=== PATIENT | female | born 1965 | race Caucasian/White ===

== ENCOUNTER 2020-01-24 07:12 | Outpatient (CLI) | payer OTHER ==
[2020-01-24] VITALS (14 sets, daily range): BP systolic 133–166; BP diastolic 63–115
[~2020-01-24] VITALS: Ht 162.6 cm; Wt 97.5 kg
[~2020-01-24 07:12] MED LIST: AMITRIPTYLINE H10 M3 PO; COLACE100 MG PO; COZAAR 50 MG TA50 M2 PO; HYDROCHLOROTHIA25 M2 PO; IBUPROFEN 800800 M1 PO; LEVOTHYROXINE 0.1 MG PO; MOBIC15 MG PO; PERCOCET 5-3251 EACH PO; STOOL SOFTENER100 MG PO; TIZANIDINE HCL 22 M1 PO; TRAMADOL 50 MG50 MG PO; XARELTO10 MG PO; ZANAFLEX2 MG PO; ZANAFLEX4 MG PO; ZOLOFT100 MG PO; ZOLOFT50 MG PO
[2020-01-24 07:58] LABS: HEMATOCRIT 38.8 % (37.0-47.0); HEMOGLOBIN 13.1 gm/dL (12.0-15.0); MCH 31.6 pg (26.0-34.0); MCHC 33.8 g/dL (28.0-37.0); MCV 93.4 fL (80.0-100.0); RBC 4.15 mil/uL (4.20-5.00); RDW 12.9 % (10.5-14.5); WBC 6.7 thou/uL (4.0-11.0)
[2020-01-24 08:10] LABS: CALCIUM 8.9 mg/dL (8.5-10.1); CREATININE 0.9 mg/dL (0.6-1.0); POTASSIUM 3.6 mmol/L (3.5-5.1)
--- NOTE | 2020-01-24 08:23 | EKG ---
[facility] [place] [address] ELECTROCARDIOGRAM REPORT Name: JB BEAVER Room #: REG [facility]#: [id number] Admission: 01/24/20 Attend Phys: Elroy Ballesteros MD, Discharge: Date of : 61 Report #: [id number] THIS REPORT FOR: cc: Kartik Kohler,Iggy Blanco MD [facility] THIS REPORT FOR: //name// [facility] Test Date: 2020-01-24 Test Time: 07:55:27 Pat Name: JB BEAVER Department: Room: Gender: F Bolt Threader: DAREK : 1965 Requested By: Elroy Ballesteros Order Number: [id number] MD: Iggy Wilkes Measurements Intervals [place] Rate: 59 P: 38 IN: 187 QRS: 25 QRSD: 105 T: 36 QT: 444 QTc: 440 Interpretive Statements Sinus bradycardia Normal tracing Compared to ECG 04/25/2014 08:34:29 No significant changes Electronically Signed On 01-24-2020 8:23:38 CDT by Iggy Wilkes [email or web address] <ELECTRONICALLY SIGNED> By: Iggy Wilkes MD, [facility] 01/24/20 0823 0755 0755 Iggy Wilkes MD, [facility] /EPI
[2020-01-24] MEDS ORDERED: ESTRACE42.5 GM VAG (08:37)
[2020-01-24] MEDS ORDERED: MELOXICAM15 MG PO (08:38)
[2020-01-24] MEDS ORDERED: TAPAZOLE10 MG PO (08:39)
[2020-01-24] MEDS ORDERED: METOPROLOL SUCC50 MG PO (08:40)
[2020-01-24] MEDS ORDERED: ROSUVASTATIN CA10 MG PO (08:41)
[2020-01-24] MEDS ORDERED: OCUVITE ADULT1 EAC1 PO (08:41)
--- NOTE | 2020-01-24 10:29 | NUR ---
pt anxious, getting frustrated that her heart cath is running late. Attempted to reassure pt, explained that there are emergencies this morning.
--- NOTE | 2020-01-24 19:24 | NUR ---
PT ADMITED FROM [employer]PERVIS[employer]. ADMISSION HX AND ASSESSMENT COMPLETED. VSS. RIGHT GROIN INCISION C/D/I. NO HEMATOMA NOTED. PT DENIED HAVING PAIN. SR/ SB ON TELE. WILL CONTINUE TO MONITOR.
[2020-01-25 01:00] VITALS: BP 148/63
[2020-01-25 04:22] LABS: HEMATOCRIT 37.1 % (37.0-47.0); HEMOGLOBIN 12.4 gm/dL (12.0-15.0); MCH 31.1 pg (26.0-34.0); MCHC 33.3 g/dL (28.0-37.0); MCV 93.5 fL (80.0-100.0); RBC 3.97 mil/uL (4.20-5.00); RDW 12.8 % (10.5-14.5); WBC 7.9 thou/uL (4.0-11.0)
--- NOTE | 2020-01-25 04:36 | NUR ---
ASSESSMENT DOCUMENTED.PT BEEN RESTING IN NO ACUTE DISTRESS.A/OX4.VSS.S/P CARDIAC JESSE W/INTERVENTIONS.RIGHT GROIN MYNX,W/O HEMATOMA OR BRUISING.DRESSING CDI.PERIPHERAL PULSES 2+ THROUGHOUT.UP AD ERIC IN THE ROOM.POC IS TO GO HOME TODAY.WILL CONT TO MONITOR PER POC.
[2020-01-25 04:43] LABS: ALBUMIN 3.5 g/dL (3.4-5.0); CALCIUM 8.6 mg/dL (8.5-10.1); CREATININE 0.8 mg/dL (0.6-1.0); POTASSIUM 3.8 mmol/L (3.5-5.1); TOTAL BILIRUBIN 0.3 mg/dL (0.2-1.0); TOTAL PROTEIN 6.9 g/dL (6.4-8.2)
[2020-01-25 04:53] LABS: TROPONIN-I 0.69 ng/mL (<0.06)
[2020-01-25 05:07] VITALS: BP 144/63
[2020-01-25 05:15] VITALS: BP 145/68
--- NOTE | 2020-01-25 07:51 | EKG ---
[facility] [place] [address] ELECTROCARDIOGRAM REPORT Name: JB BEAVER Room #: 209-[facility]..#: [id number] Admission: 01/24/20 Attend Phys: Elroy Ballesteros MD, Discharge: Date of : 61 Report #: [id number] THIS REPORT FOR: cc: Kartik Kohler,Kartik Christian,Iggy Coronel MD [facility] THIS REPORT FOR: //name// [facility] Test Date: 2020-01-25 Test Time: 07:09:18 Pat Name: JB BEAVER Department: Room: 209 P Gender: F Real Estate Underwriter: DAREK : 1965 Requested By: Elroy Ballesteros Order Number: [id number] MD: Iggy Wilkes Measurements Intervals [place] Rate: 55 P: 37 [place]: 183 QRS: 44 QRSD: 107 T: 38 QT: 465 QTc: 445 Interpretive Statements Sinus bradycardia Atrial premature complex Compared to ECG 01/24/2020 07:55:27 Atrial premature complex(es) now present Electronically Signed On 01-25-2020 7:51:34 CDT by Iggy Wilkes [email or web address] <ELECTRONICALLY SIGNED> By: Iggy Wilkes MD, [facility] 01/25/20 0751 8 8 Iggy Wilkes MD, [facility] /EPI
[2020-01-25 09:03] VITALS: BP 139/62
[2020-01-25] MEDS ORDERED: EFFIENT10 MG PO (09:05)
[2020-01-25] MEDS ORDERED: XARELTO10 MG PO (09:05)
[2020-01-25 10:41] VITALS: BP 139/62
--- NOTE | 2020-01-25 11:32 | NUR ---
ASSUMED CARE AT SHIFT CHANGE, ALERT AND ORIENTED X4, AND DENIES ANY CP. VSS AND AFEBRILE. DRESSING TO RT GRION SITE D/C/I. DISCHARGE AND MEDICATION INSTRUCTION GIVEN TO PATIENT AND SHE VERBALIZED UNDERSTANDING. DISCHARGED HOME.
--- NOTE | 2020-02-02 17:42 | CATHLAB ---
[facility] [place] [address] INVASIVE PROCEDURE REPORT Name: JB BEAVER Room #: [facility] SHONA Barbour#: [id number] Admission: 01/24/20 Attend Phys: Elroy Ballesteros MD, Discharge: 01/25/20 Date of : 61 Report #: [id number] THIS REPORT FOR: cc: Kartik Kohler Jeffrey W. DO Mancuso, Gerald M. MD [facility] ~ APPROVED REPORT Study performed: 01/24/2020 13:26:56 Patient Details Patient Status: Out-Patient Room #: The patient is a 54 year-old female Event Personnel Elroy Ballesteros Starting Sheet Tank Operator, Pinky Israel RN, Rosita Reynolds, Jade Byrd RTR Monitor, Gina New RTR, PRODUCTION TRAINER Monitor Procedures Performed Art Access - R femoral artery* Aortogram Abdominal Peripheral Angio 899055 [address] Place w/wo Plasty Single DIAG 333219 Right and Left Heart Cath w/or w/o Coronarie 8925908 [facility] Kofi Access - R femoral vein Hemostasis w/ Mynx Hemostasis with Manual pressure 17428 Mod Sed Same Phys/QHP Ea 208569 11031 Initial Mod Sed Same Phys/QHP Gr5y 714902 Indication Positive stress test Procedure Narrative The Right Groin^ was infiltrated with 1% Lidocaine subcutaneous anesthesia. A PINNACLE 6FR Sheath #[id number] sheath was inserted into the RFA. Coronary angiography was performed using coronary diagnostic catheters. The right coronary system was accessed and visualized with a JR4 catheter. The left coronary system was accessed and visualized with a JL4 catheter. The left ventricle was accessed and visualized with a pigtail catheter. Left ventriculogram was performed in 30 degree projection. An aortogram of the abdominal aorta was performed. Closure device was deployed with a 6 Fr MYNX CONTROL 6F/7F L#[id number]. Hemostasis was obtained with manual pressure following sheath removal without any complications. The patient tolerated the procedure well and there were no complications associated with the procedure. There was no hematoma. [address] [address] INVASIVE PROCEDURE REPORT Name: SARANYAJB L [facility] [id number] Admission: 01/24/20 Attend Phys: Elroy Ballesteros, Discharge: 01/25/20 Date of : 61 Report #: [id number] Intraoperative Conscious Sedation Sedation start time: 13:54 Case end Time: 15:03 Fentanyl 100 mcg Versed 2.0 mg Fluoro Time: 8.70 minutes Dose: DAP 22103.10 cGycm2 1826 mGy Contrast Type and Amount: Omnipaque 195 ml Hemodynamics The right atrial mean pressure is 13 mmHg. The right ventricular pressure is 37/8 mmHg. The pulmonary artery pressure is 36/16 mmHg with a mean of 24 mmHg. The mean pulmonary capillary wedge pressure is 21 mmHg. The left ventricular pressure is 144/13 mmHg with a mean of mmHg. The left ventricular end diastolic pressure is 25 mmHg. The cardiac output using thermo method is 5.65 L/min. The cardiac index using thermo method is 2.80 L/min/m2. PCI Technique Lesion Percutaneous coronary intervention was performed on the first diagnonal branch segment. A LAUNCHER 6FR EBU 3.5 #167388 Guide Catheter was used to engage the ostium. A Luge Wire .014 x 182CM #[id number] Interventional Guidewire was used to cross the lesion. BALLOON DILATION A Balloon catheter Sprinter OTW 2.25 x 12 #[id number] was inserted and inflated up to 8.00atm for 19seconds. Additional Inflation: 8.00atm for 17seconds. Additional Inflation: 10.00atm for 24seconds. STENT DEPLOYMENT A drug-eluting stent RESOLUTE TERE OTW 2.25 X 12 #[id number] was inserted and inflated up to 16.00atm for 27seconds. Conclusion 1. Successful right heart catheterization with cardiac output by thermodilution. See above hemodynamics. #2 normal left ventricular size and systolic function EF 50 to 55%. #3 abdominal aortogram revealing mild aortic ectasia but no aneurysm formation. Renal arteries bilateral appear to be patent #4 successful PTCA stent of a proximal large diagonal system which is subtotally occluded with slow flow to SALOME grade III flow with a 2.25 x 12 Tere stent postdilated 2.4 mm SALOME grade III flow #5 left main free of disease giving rise to LAD and circumflex. [facility] [place] [address] INVASIVE PROCEDURE REPORT Name: JB BEAVER [facility]: [facility] [id number] Admission: 01/24/20 Attend Phys: Elroy Ballesteros, Discharge: 01/25/20 Date of : 61 Report #: [id number] #6 the LAD with mild irregularities extends around the apex. Eccentric 40% proximal lesion. #7 circumflex OM with an eccentric proximal 70 to 75% lesion nondominant but moderate size vessel. #8 dominant right coronary with an eccentric 70% ostial lesion mid vessel 30 to 40%. Recommendations and plan: Continue aggressive risk factor modification. Dual antiplatelet therapy has been initiated for diagonal lesion. Will have strong consideration follow-up for intervention to proximal circumflex and ostial RCA. Follow-up will be arranged. Patient stable transfer to CCU. <ELECTRONICALLY SIGNED> By: Elroy Ballesteros MD, FACC 02/02/201741 41 41 Elroy Ballesteros MD, FACC /INF
--- NOTE | 2020-02-06 11:24 | H ---
[facility] [place] [address] HISTORY AND PHYSICAL Name: JB BEAVER Room #: DEP [facility]#: [id number] Admission: 01/24/20 Attend Phys: Elroy Ballesteros MD, Discharge: 01/25/20 Date of : 61 Report #: [id number] THIS REPORT FOR: cc: Kartik Kohler Jeffrey W. DO Mancuso, Gerald M. MD [facility] ~ CC: Elroy Kohler DATE OF SERVICE: 01/24/2020 HISTORY OF PRESENT ILLNESS: The patient is a 54-year-old female, patient of Dr. Kohler and Deondre Frias from [place]. I am asked to evaluate her for some progressive dyspnea, shortness of breath and some questionable anginal symptoms. Abnormal nuclear test suggesting anterior lateral wall ischemia. She has a very strong family history of premature coronary disease and secondhand smoke with the that smokes continuously in the house. She has not been a smoker. She has been maintained. She does note a marked decrease in her exercise tolerance and some occasional throat discomfort, but she was not aware that this could be angina. She is on rosuvastatin 10, a stool softener, tizanidine, metoprolol 50, methimazole, meloxicam. Recently started on Xarelto 20 mg a day because of some paroxysmal AFib. She has had no bleeding issues. PAST MEDICAL HISTORY: Positive for now the paroxysmal AFib, hypercholesterolemia, hysterectomy, cholecystectomy, bladder surgery, tubal ligation. SOCIAL HISTORY: She is . They [place]. She does work extensively at the home and longterm work. No tobacco, no significant alcohol use. FAMILY HISTORY: Extremely positive including brother, sister and father, all with premature coronary artery disease, in the 50s and 60s. REVIEW OF SYSTEMS: Negative except for stated above with the progressive dyspnea and fatigue. PHYSICAL EXAMINATION: GENERAL: She is pleasant, alert. VITAL SIGNS: Blood pressure 126/70, pulse 60. HEENT: Eyes reveal xanthelasmas. Pharynx is clear. NECK: Shows preserved upstrokes without JVD or bruits. LUNGS: Clear. CARDIOVASCULAR: Regular rate and rhythm, S1, S2, without murmur or gallop. ABDOMEN: Soft. No HSM or abdominal bruit. EXTREMITIES: Reveal trace of edema. Distal pulses diminished, but intact. [facility] [address] [place] [address] HISTORY AND PHYSICAL Name: JB BEAVER Room #: DEP [facility]#: [id number] Admission: 01/24/20 Attend Phys: Elroy Ballesteros MD, Discharge: 01/25/20 Date of : 61 Report #: [id number] NEUROLOGIC: Nonfocal. SKIN: Warm and dry without xanthoma or ulcer. MUSCULOSKELETAL: Generalized arthritic changes. ASSESSMENT: 1. Suspected coronary artery disease with stable angina and abnormal stress test. 2. Borderline hypertension. 3. Hypercholesterolemia. 4. Paroxysmal atrial fibrillation. 5. Degenerative joint disease. 6. Obstructive sleep apnea. RECOMMENDATIONS AND PLAN: We will check lipids with Dr. Kohler. Xarelto has been held for 72 hours. We will proceed with a catheterization to delineate the anatomy. Right and left heart catheterization and indication for intervention if so. There could be some underlying pulmonary issues here in addition. We will certainly notify you outcome of this procedure. Thank you for allowing us to share in her care. <ELECTRONICALLY SIGNED> By: Elroy Ballesteros MD, FACC 02/06/20 1124 1446 1516 Elroy Ballesteros MD, FACC /nt
== END 2020-01-25 12:17 | disposition home or self-care (01) ==
LOC: CATH 07:12 → 2N 15:47 → CATH 01-25 12:17
PROVIDERS: ATTEND Internal Medicine Cardiovascular Disease
DX: R94.39 Abnormal result of other cardiovascular function study (principal); I25.10 Atherosclerotic heart disease of native coronary artery without angina pectoris; R06.00 Dyspnea, unspecified; I77.811 Abdominal aortic ectasia; I10 Essential (primary) hypertension; E78.00 Pure hypercholesterolemia, unspecified; I48.0 Paroxysmal atrial fibrillation; M19.90 Unspecified osteoarthritis, unspecified site; E78.5 Hyperlipidemia, unspecified; F32.9 Major depressive disorder, single episode, unspecified; F41.9 Anxiety disorder, unspecified; E05.00 Thyrotoxicosis with diffuse goiter without thyrotoxic crisis or storm; Z98.890 Other specified postprocedural states; Z79.899 Other long term (current) drug therapy; Z82.49 Family history of ischemic heart disease and other diseases of the circulatory system; Z91.040 Latex allergy status
CPT/HCPCS: 10081

== ENCOUNTER → 2020-05-23 | Outpatient (CLI) | payer OTHER ==
[~2020-05-23] MED LIST changes: +EFFIENT10 MG PO; +ESTRACE42.5 GM VAG; +MELOXICAM15 MG PO; +METOPROLOL SUCC50 MG PO; +OCUVITE ADULT1 EAC1 PO; +ROSUVASTATIN CA10 MG PO; +TAPAZOLE10 MG PO
== END ==
LOC: SJCVCIMAG 09:51
PROVIDERS: ATTEND Internal Medicine Cardiovascular Disease
DX: I25.10 Atherosclerotic heart disease of native coronary artery without angina pectoris (principal); I48.91 Unspecified atrial fibrillation; Z98.61 Coronary angioplasty status

== ENCOUNTER 2020-05-29 07:07 | Observation (INO) | payer OTHER ==
[2020-05-29] VITALS (11 sets, daily range): BP systolic 124–147; BP diastolic 58–78
[~2020-05-29] VITALS: Ht 162.6 cm; Wt 93.4 kg
--- NOTE | 2020-05-29 07:50 | EKG ---
[facility] Danica Moore [facility] [address] ELECTROCARDIOGRAM REPORT Name: JB BEAVER Room #: REG [facility]#: [id number] Admission: 05/29/20 Attend Phys: Elroy Ballesteros MD, Discharge: Date of : 61 Report #: [id number] THIS REPORT FOR: cc: LEATHA WALLER Physician not on staff Iggy Wilkes MD [facility] ~ THIS REPORT FOR: //name// [facility] Test Date: 2020-05-29 Test Time: 07:46:58 Pat Name: JB BEAVER Department: Room: Gender: F Production Director: [facility] : 1965 Requested By: Elroy Ballesteros Order Number: [id number] MD: Iggy Wilkes Measurements Intervals [place] Rate: 64 P: 58 AL: 188 QRS: 19 QRSD: 97 T: 40 QT: 424 QTc: 438 Interpretive Statements Sinus rhythm No significant abnormality Compared to ECG 01/25/2020 07:09:18 Sinus bradycardia no longer present Atrial premature complex(es) no longer present Electronically Signed On 05-29-2020 7:50:43 SALT WASHER by Iggy Wilkes [email or web address] <ELECTRONICALLY SIGNED> By: Iggy Wilkes MD, [facility] 05/29/20 0750 Iggy Wilkes MD, [facility] /EPI
[2020-05-29 08:00] LABS: HEMATOCRIT 37.2 % (37.0-47.0); HEMOGLOBIN 12.4 gm/dL (12.0-15.0); MCH 30.7 pg (26.0-34.0); MCHC 33.4 g/dL (28.0-37.0); MCV 91.9 fL (80.0-100.0); RBC 4.04 mil/uL (4.20-5.00); WBC 7.4 thou/uL (4.0-11.0)
[2020-05-29] MEDS ORDERED: OCUVITE ADULT1 EAC1 PO (08:17)
[2020-05-29] MEDS ORDERED: ASA81BEC PO (08:23)
[2020-05-29 08:40] LABS: CALCIUM 9.4 mg/dL (8.5-10.1); CREATININE 0.9 mg/dL (0.6-1.0); POTASSIUM 3.5 mmol/L (3.5-5.1)
--- NOTE | 2020-05-29 14:11 | EKG ---
[facility] [place] [address] ELECTROCARDIOGRAM REPORT Name: JB BEAVER Room #: 218-P [facility] M.R.#: [id number] Admission: 05/29/20 Attend Phys: Elroy Ballesteros MD, Discharge: Date of : 61 Report #: [id number] THIS REPORT FOR: cc: LEATHA WALLER Physician not on staff Mario Jackson MD [facility] ~ THIS REPORT FOR: //name// [facility] Test Date: 2020-05-29 Test Time: 12:47:49 Pat Name: JB BEAVER Department: Room: 218 P Gender: F Rubber Belt Splicer: DAREK : 1965 Requested By: Magda Birch Order Number: [id number] MD: Mario Jackson Measurements Intervals [place] Rate: 57 P: 52 [place]: 195 QRS: 44 QRSD: 112 T: 30 QT: 455 QTc: 443 Interpretive Statements Sinus rhythm Borderline intraventricular conduction delay Compared to ECG 05/29/2020 07:46:58 No significant changes Electronically Signed On 05-29-2020 14:11:34 PHYSICAL BIOCHEMIST by Mario Jackson [email or web address] <ELECTRONICALLY SIGNED> By: Mario Jackson MD, FACC 05/29/20 1411 1247 1247 Mario Jackson MD, FAC /EPI
--- NOTE | 2020-05-29 17:37 | NUR ---
PT ADMITED FROM [employer]. ADMISSION HX AND ASSESSMENT COMPLETED. VSS. RIGHT GROIN INCISION C/D/I. NO HEMATOMA NOTED. POST OP CARDIAC CATH INSTRUCTIONS GIVEN TO PT. PT VERBERLISED UNDERSTANDING.
--- NOTE | 2020-05-29 18:01 | CATHLAB ---
[facility] [place] [address] INVASIVE PROCEDURE REPORT Name: JB BEAVER Room #: 218-P [facility] Mohit Barbour#: [id number] Admission: 05/29/20 Attend Phys: Elroy Ballesteros MD, Discharge: Date of : 61 Report #: [id number] THIS REPORT FOR: cc: LEATHA WALLER Physician not on staff Elroy Ballesteros MD [facility] ~ APPROVED REPORT Study performed: 05/29/2020 09:04:50 Patient Details Patient Status: Out-Patient Room #: The patient is a 54 year-old female Event Personnel Elroy Ballesteros General Production Manager, Caio Epperson RN RN, Jade Byrd RTR Monitor, María Elena Nicolas RTR Scrub Procedures Performed Art Access - R femoral artery* Left Heart Cath w/or w/o Coronaries 9114075 [facility] [address] w/wo Plasty Single CIRC 880971 [address] Place w/wo Plasty Single DIAG 176451 Hemostasis w/ Mynx 50127 Initial Mod Sed Same Phys/QHP Gr5y 681352 16067 Mod Sed Same Phys/QHP Ea 073699 Procedure Narrative The Right Groin^ was infiltrated with 1% Lidocaine subcutaneous anesthesia. A PINNACLE 6FR Sheath #879802 sheath was inserted into the RFA^. Coronary angiography was performed using coronary diagnostic catheters. The right coronary system was accessed and visualized with a JR4 catheter. The left coronary system was accessed and visualized with a JL4 catheter. The left ventricle was accessed and visualized with a PIGTAIL catheter. Left ventriculogram was performed in 30 degree projection. An aortogram of the abdominal aorta was performed. Closure device was deployed with a Fr MYNX CONTROL 6F/7F L#[id number]. The patient tolerated the procedure well and there were no complications associated with the procedure. There was no hematoma. Intraoperative Conscious Sedation Sedation start time: 9:35 Case end Time: 10:57 Fentanyl 75 mcg Versed 1.5 mg [facility] [address] [place] [address] INVASIVE PROCEDURE REPORT Name: SARANYAKEVINJB L Room #: 218-P [facility]#: [id number] Admission: 05/29/20 Attend Phys: Elroy Ballesteros, Discharge: Date of : 61 Report #: [id number] Fluoro Time: 11.60 minutes Dose: DAP 18578.20 cGycm2 3005 mGy Contrast Type and Amount: Omnipaque 240 ml Hemodynamics The aortic pressure is 166/65 mmHg with a mean of 86 mmHg. The left ventricular pressure is 168/10 mmHg with a mean of mmHg. The left ventricular end diastolic pressure is 27 mmHg. PCI Technique Lesion Percutaneous coronary intervention was performed on the proximal circumflex artery segment. A LAUNCHER 6FR EBU 3.5 #704692 Guide Catheter was used to engage the ostium. A Luge Wire .014 x 182CM #410858 Interventional Guidewire was used to cross the lesion. BALLOON DILATION A Balloon catheter Sprinter OTW 2.5 x 12 #[id number] was inserted and inflated up to 10.00atm for 29seconds. STENT DEPLOYMENT A stent RESOLUTE EDITH OTW 3.0 X 15 #[id number] was inserted and inflated up to 15.00atm for 36seconds. Additional Inflation: 16.00atm for 26seconds. PCI Technique Lesion 2 Percutaneous Coronary Intervention was performed on the first diagnonal branch segment. A LAUNCHER 6FR EBU 3.5 #610243 Guide Catheter was used to engage the ostium. A Luge Wire .014 x 182CM #398473 Interventional Guidewire was used to cross the lesion. Balloon Dilation A Balloon catheter Sprinter OTW 2.25 x 12 #[id number] was inserted and inflated up to 8.00atm for 28seconds. Additional Inflation: 10.00atm for 25seconds. Stent Deployment A stent RESOLUTE EDITH OTW 2.25 X 12 #[id number] was inserted and inflated up to 10.00atm for 24seconds. Additional Inflation: 16.00atm for 27seconds. Conclusion #1. Successful PTCA stent of the high-grade proximal circumflex lesion 80% to 0% placement of a 3.0 x 15 resolute edith SALOME grade III flow in a large but anatomically nondominant vessel. [facility] [address] [place] [address] INVASIVE PROCEDURE REPORT Name: SARANYAJB L Room #: 218-P [facility].#: [id number] Admission: 05/29/20 Attend Phys: Elroy Ballesteros, Discharge: Date of : 61 Report #: [id number] #2 successful PTCA stent of a proximal diagonal branch just distal to a previously placed stents high-grade disease placement of a 2.25 x 12 Edith resolute SALOME grade III flow #3 left main large free of disease giving rise to the LAD and circumflex #4 LAD with mild disease extends to the apex. #5 anatomically dominant right coronary artery with an eccentric 60% proximal lesion diffuse disease distally giving rise to the PDA mildly diseased. #6 normal left ventricular size and subtle anterior lateral wall leg EF 50 to 55% Recommendations and plan: Continue aggressive risk factor modification. Patient is anticoagulated for A. fib. Will utilize triple therapy with a baby aspirin for the first 30 days and then revert back to Effient and Xarelto. Patient is hemodynamically stable and pain-free transfer back to CCU to follow post coronary stent protocol. <ELECTRONICALLY SIGNED> By: Elroy Ballesteros MD, FACC 05/29/201800 00 00 Elroy Ballesteros MD, FACC /INF
[2020-05-30 00:18] VITALS: BP 117/53
[2020-05-30 05:05] LABS: HEMATOCRIT 36.7 % (37.0-47.0); HEMOGLOBIN 12.1 gm/dL (12.0-15.0); MCH 30.6 pg (26.0-34.0); MCHC 32.9 g/dL (28.0-37.0); RBC 3.95 mil/uL (4.20-5.00); RDW 13.3 % (10.5-14.5); WBC 8.9 thou/uL (4.0-11.0)
[2020-05-30 05:19] LABS: ALBUMIN 3.6 g/dL (3.4-5.0); CALCIUM 8.7 mg/dL (8.5-10.1); CREATININE 0.8 mg/dL (0.6-1.0); POTASSIUM 3.7 mmol/L (3.5-5.1); TOTAL BILIRUBIN 0.4 mg/dL (0.2-1.0); TOTAL PROTEIN 6.8 g/dL (6.4-8.2)
--- NOTE | 2020-05-30 05:45 | NUR ---
PT R GROIN CDI, NO C/O PAIN, VSS, PT UP ADLIB IN ROOM, HOPING TO GO HOME TODAY, WILL CON'T TO MONITOR PER PPOC.
[2020-05-30 06:13] VITALS: BP 133/67
[2020-05-30] MEDS ORDERED: XARELTO10 MG PO (07:22)
--- NOTE | 2020-05-30 07:26 | EKG ---
[facility] [place] [address] ELECTROCARDIOGRAM REPORT Name: JB BEAVER Room #: 218-P [facility] M.R.#: [id number] Admission: 05/29/20 Attend Phys: Elroy Ballesteros MD, Discharge: Date of : 61 Report #: [id number] THIS REPORT FOR: cc: LEATHA WALLER Physician not on staff Mario Jackson MD [facility] ~ THIS REPORT FOR: //name// [facility] Test Date: 2020-05-30 Test Time: 07:07:33 Pat Name: JB BEAVER Department: Room: 218 P Gender: F Build Master: DAREK : 1965 Requested By: Magda Birch Order Number: [id number] : Mario Jackson Measurements Intervals [place] Rate: 67 P: 37 [place]: 179 QRS: 22 QRSD: 99 T: 28 QT: 414 QTc: 437 Interpretive Statements Sinus rhythm Compared to ECG 05/29/2020 12:47:49 No significant changes Electronically Signed On 05-30-2020 7:26:02 FITNESS FLOOR ATTENDANT by Mario Jackson [email or web address] <ELECTRONICALLY SIGNED> By: Mario Jackson MD, FACC 05/30/20725 6 6 Mario Jackson MD, [facility] /EPI
[2020-05-30 08:00] VITALS: BP 139/67
[2020-05-30 09:24] VITALS: BP 139/67
--- NOTE | 2020-05-30 10:16 | NUR ---
ASSUMED CARE AT CHANGE OF SHIFT. ALERT X4, FROM HOME, HEART CATH WITH STENT 05/29/[address] CAICEDO. RIGHT GROIN SIGHT INTACT. CARDIAC BOX GLUER ROUNDED AND PROVIDED POST STENT EDUCATION. NSR ON TELE. DENIES PAIN, DENIES SOB, SCHEDULED MEDICATIONS GIVE PER ORDERS. DC HOME WITH SELF CARE.
[2020-05-30 10:21] VITALS: BP 139/67
[2020-05-30 11:12] VITALS: BP 126/79
== END 2020-05-30 14:17 | disposition home or self-care (01) ==
LOC: CATH 07:07 → 2N 12:07 → CATH 12:08 → 2N 12:08 → CATH 12:15 → 2N 05-30 14:17
PROVIDERS: Nurse Practitioner; ADMIT Internal Medicine Cardiovascular Disease; ATTEND Internal Medicine Cardiovascular Disease
DX: I25.10 Atherosclerotic heart disease of native coronary artery without angina pectoris (principal); I10 Essential (primary) hypertension; E78.5 Hyperlipidemia, unspecified; I48.0 Paroxysmal atrial fibrillation; E78.00 Pure hypercholesterolemia, unspecified

== ENCOUNTER → 2021-08-01 | Outpatient (CLI) | payer OTHER ==
[~2021-08-01] VITALS: Ht 162.6 cm; Wt 93.0 kg
[~2021-08-01] MED LIST changes: +ASA81BEC PO
[2021-08-01 07:32] VITALS: BP 142/68
[2021-08-01 07:33] LABS: HEMATOCRIT 42.3 % (37.0-47.0); HEMOGLOBIN 13.8 gm/dL (12.0-15.0); MCH 30.5 pg (26.0-34.0); MCHC 32.7 g/dL (28.0-37.0); MCV 93.2 fL (80.0-100.0); RBC 4.54 mil/uL (4.20-5.00); RDW 12.8 % (10.5-14.5); WBC 8.3 thou/uL (4.0-11.0)
[2021-08-01 07:56] LABS: CALCIUM 9.7 mg/dL (8.5-10.1); POTASSIUM 3.6 mmol/L (3.5-5.1)
--- NOTE | 2021-08-01 08:14 | EKG ---
[address] [address] ELECTROCARDIOGRAM REPORT Name: JB BEAVER Room #: [facility]#: [id number] Admission: 08/01/21 Attend Phys: Erloy Ballesteros MD, Discharge: Date of : 61 Report #: [id number] [facility] Test Date: 2021-08-01 Test Time: 07:57:41 Pat Name: JB BEAVER Department: Room: Gender: F Boilermaker Mechanic: [facility] : 1965 Requested By: Elroy Ballesteros Order Number: [id number] MD: Iggy Wilkes Measurements Intervals [place] Rate: 58 P: 26 [place]: 185 QRS: 16 QRSD: 101 T: 20 QT: 449 QTc: 442 Interpretive Statements Sinus bradycardia Otherwise normal tracing Compared to ECG 05/30/2020 07:07:33 No significant changes Electronically Signed On 08-01-2021 8:14:28 AUTOMOBILE CONTRACT CLERK by Iggy Wilkes [email or web address] <ELECTRONICALLY SIGNED> By: Iggy Wilkes MD, [facility] 08/01/21 0814 0757 0757 Iggy Wilkes MD, FACC /EPI
--- NOTE | 2021-08-01 10:16 | NUR ---
LATE ENTRY 10:00- PT BACK FROM PROCEDURE TO CV HOLDING RM 1. PT A/OX3 NO C/O. PTS DAUGHTER AT BEDSIDE WITH VERBAL INSTRUCTIONS TO BOTH PT AND PTS DAUGHTER OR R LEG MOVEMENT AND PRESSURE TO SITE FOR LAUGH, COUGH, OR SNEEZE. COFFEE PROVDIDED TO PT WITH PT HAVING NO OTHER REQUEST AT THIS TIME.
--- NOTE | 2021-08-03 16:47 | CATHLAB ---
[facility] [address] [place] [address] INVASIVE PROCEDURE REPORT Name: JB BEAVER Room #: REG SHONA HarryMariano#: [id number] Admission: 08/01/21 Attend Phys: Elroy Ballesteros MD, Discharge: Date of : 61 Report #: [id number] THIS REPORT FOR: cc: LEATHA WALLER Physician not on staff Elroy Ballesteros MD [facility] ~ APPROVED REPORT Study performed: 08/01/2021 08:30:50 Patient Details Patient Status: Out-Patient Room #: The patient is a 56 year-old female Event Personnel Elroy Ballesteros Letterpress Setter, Jade Cooley RTR Monitor, Laura Leon RTR Scrub, Gina New RTR, HAND UMBRELLA TIPPER Scrub, Jerman Tristan RN imaging system administrator Performed Art Access - R femoral artery* Kofi Access - R femoral vein Right and Left Heart Cath w/or w/o Coronarie [id number] [facility] Aortogram Abdominal Peripheral Angio 871541 Hemostasis w/ Mynx Hemostasis with Manual pressure 64203 Initial Mod Sed Same Phys/QHP Gr5y 277081 30774 Mod Sed Same Phys/QHP Ea 677156 Procedure Narrative The Right Groin^ was infiltrated with 1% Lidocaine subcutaneous anesthesia. A PINNACLE 6FR Sheath #[id number] sheath was inserted into the RFA. Coronary angiography was performed using coronary diagnostic catheters. The right coronary system was accessed and visualized with a 3DRC catheter. The left coronary system was accessed and visualized with a JL4 catheter. The left ventricle was accessed and visualized with a PIGTAIL catheter. Left ventriculogram was performed in 30 degree projection. An aortogram of the abdominal aorta was performed. Closure device was deployed with a Fr MYNX CONTROL 6F/7F L#[id number]. The patient tolerated the procedure well and there were no complications associated with the procedure. There was no hematoma. Intraoperative Conscious Sedation Sedation start time: 8:58 Case end Time: 9:46 Fentanyl 100.0 mcg Versed [address] [address] INVASIVE PROCEDURE REPORT Name: SARANYAJB Room #: [facility]#: [id number] Admission: 08/01/21 Attend Phys: Elroy Ballesteros, Discharge: Date of : 61 Report #: [id number] Fluoro Time: 7.02 minutes Dose: DAP 7099.50 cGycm2 742 mGy Contrast Type and Amount: Omnipaque 115 ml Hemodynamics The right atrial mean pressure is 9 mmHg. The right ventricular pressure is 33/4 mmHg. The pulmonary artery pressure is 32/4 mmHg with a mean of 16 mmHg. The mean pulmonary capillary wedge pressure is 14 mmHg. The aortic pressure is 143/71 mmHg with a mean of 51 mmHg. The left ventricular pressure is 132/-4 mmHg with a mean of mmHg. The left ventricular end diastolic pressure is 19 mmHg. The cardiac output using thermo method is 5.80 L/min. The cardiac index using thermo method is 2.86 L/min/m2. Conclusion #1 Successful right heart catheterization with cardiac output by thermodilution. See above hemodynamics. #2 normal left ventricular size systolic function lower limits of normal EF 50% range. #3 abdominal aorta is intact no aneurysm formation mild plaquing is noted. Brisk flow into the iliac system is noted. #4 left main is widely patent giving rise to LAD and circumflex. #5 LAD is mildly irregular extends to the apex with no occlusive disease. High rising diagonal branch is moderate distribution previously placed stents have mild in-stent restenosis. #6 circumflex OM is nondominant with mild irregularity there is a proximal stent that is widely patent previously placed. #7 dominant right coronary artery with mild disease in the mid vessel 40 to 50% giving rise to the PDA which is relatively small but widely patent. Recommendations and plan: Continue aggressive risk factor modification. No indication for coronary intervention. Patient will follow-up with Dr. Kohler. <ELECTRONICALLY SIGNED> By: Elroy Ballesteros MD, FACC 08/03/211646 46 46 Elroy Ballesteros MD, FACC /INF
== END | disposition home or self-care (01) ==
LOC: CATH 06:55
PROVIDERS: ATTEND Internal Medicine Cardiovascular Disease
DX: I25.10 Atherosclerotic heart disease of native coronary artery without angina pectoris (principal); I70.0 Atherosclerosis of aorta; I10 Essential (primary) hypertension; E78.00 Pure hypercholesterolemia, unspecified; I48.91 Unspecified atrial fibrillation; F32.9 Major depressive disorder, single episode, unspecified; G47.30 Sleep apnea, unspecified; Z98.890 Other specified postprocedural states; Z79.899 Other long term (current) drug therapy; Z79.01 Long term (current) use of anticoagulants; Z82.49 Family history of ischemic heart disease and other diseases of the circulatory system; Z91.040 Latex allergy status